=== PATIENT | female | born 1990 | race Caucasian/White ===

== ENCOUNTER 2022-06-25 14:05 | Emergency (ER) | payer OTHER, SELFPAY ==
--- NOTE | ~2022-06-25 | XR_ITS ---
EXAM: XR forearm LT 2V DATE: 06/25/2022 15:07 HISTORY: injury to arm, pain distal ulna . COMPARISON: Left hand 09/23/2017. FINDINGS: Normal mineralization. No acute fracture or dislocation. Old ulnar styloid fracture. No ly tic or blastic lesion. Joint spaces are maintained. No erosion or periosteal change. Soft tissues wit hin normal limits. IMPRESSION: No acute osseous finding in the left forearm. Reviewed, dictated and finalized at location K.
[2022-06-25 14:17] VITALS: BP 130/93; PULSE 90; RESP 20; TEMP 37; O2SAT 100
--- NOTE | 2022-06-25 14:32 | ED.UPPEXIN ---
HPI - Extremity Injury (Upper) General Chief Complaint: Extremity Injury, Upper Stated Complaint: L HAND LACERATION/L ARM INJURY Time Seen by Provider: 06/25/22 14:32 Source: patient, RN notes reviewed and old records reviewed Mode of arrival: ambulatory Limitations: no limitations History of Present Illness HPI narrative: 31 year old female who presents to [facility] [place] [facility] care with complaints of injury to her left arm and laceration to the lateral aspect of left hand 0.5cm V shaped with no acute bleeding noted. Patient was at work today and she slipped onto her back hitting her left arm on row of [employer] denies any LOC or hitting her head, denies any acute back pain. Patient has abrasions along left lower and upper forearms with contusion to left inner wrist area with some swelling noted. MD complaint: injury to: left, arm and hand Onset (ago): minute(s) (prior to arrival) Severity scale (1-10): 8 Treatments prior to arrival: other (soap and water) Related Data Allergies Allergy/AdvReac Type Severity Reaction Status Date / Time No Known Allergies Allergy Unverified 09/23/17 12:55 Review of Systems Review of Systems: CONSTITUTIONAL: Denies fever, chills, or sweats. EYES: Denies visual changes, redness, or discharge. ENT: Denies rhinorrhea, congestion, sore throat, or otalgia. CARDIOVASCULAR: Denies chest pain, palpitations, or edema. RESPIRATORY: Denies cough or dyspnea. GASTROINTESTINAL: Denies abdominal pain, nausea, vomiting, or diarrhea. GENITOURINARY: Denies dysuria or hematuria. SKIN: Denies rash or itching.abrasions to left upper arm and contusion to lateral aspect of left forearm o.5cm laceration to lateral aspect of left hand flap wound MUSCULOSKELETAL: Denies back pain, positive for left arm pain, or myalgia. NEUROLOGIC: Denies headache, numbness, or weakness. PSYCHIATRIC: Denies anxiety or depression. All systems reviewed & are unremarkable except as noted in HPI and below PMFSH Past Medical History Medical History (Updated 06/27/22 @ 11:28 by Felicia Srinivasan NP) No significant past medical history Surgical History Surgical History (Updated 06/27/22 @ 11:29 by Felicia Srinivasan NP) No pertinent past surgical history Social History Social History (Updated 06/27/22 @ 11:30 by Felicia Srinivasan NP) Smoking status: Never smoker Alcohol intake: unknown Substance use type: does not use Living arrangements: with family Gender identity (if verbalized by the patient): Female Comments At time of signature, agree with nursing past medical, surgical, social and family history. There is no relevant family history pertinent to the presenting complaint Exam Narrative: GENERAL: Well-appearing, well-nourished, and in no acute distress. HEAD: Normocephalic, atraumatic. EYES: PERRLA and EOMI. ENT: Nares clear, no rhinorrhea or epistaxis. Mucous membranes moist.TM's normal throat pink with no lesions or exudates or swelling NECK: Supple.no lymphadenopathy CHEST: Clear to auscultation. No respiratory distress.SAO2 100% on room air HEART: Regular rate and rhythm. No murmur heard. Normal peripheral pulses. ABDOMEN: Soft, nontender, nondistended, normal active bowel sounds. EXTREMITIES: Normal range of motion. No edema.Full mobility sensation and circulation intact to left arm with pain to inner aspect of left wrist area. SKIN: Warm, dry, injury to her lateral left hand with flap laceration, contusion to left inner wrist with discomfort, abrasions on left forearm NEURO: No focal deficits. Alert and oriented x3. Course Course Level of Care: Express Care Visit Vital Signs Vital signs: Vital Signs Temperature 37.0 C 06/25/22 14:17 Pulse Rate 90 06/25/22 14:17 Respiratory Rate 20 06/25/22 14:17 Blood Pressure 130/93 H 06/25/22 14:17 Pulse Oximetry 100 06/25/22 14:17 Temperature 37.0 C 06/25/22 14:17 Pulse Rate 90 06/25/22 14:17 Respiratory Rate 20 06/25/22 14:17 Blood Pressure 130/93 H
== END 2022-06-25 15:35 | disposition home or self-care (01) ==
PROVIDERS: Emergency Provider Registered Nurse
DX: S61.412A Laceration without foreign body of left hand, initial encounter (principal); S50.12XA Contusion of left forearm, initial encounter; S50.812A Abrasion of left forearm, initial encounter; W01.0XXA Fall on same level from slipping, tripping and stumbling without subsequent striking against object, initial encounter; Y99.0 Civilian activity done for income or pay
CPT/HCPCS: 12001; 73090; 99203; G0463